=== PATIENT | male | born 1985 | race Caucasian/White ===

== ENCOUNTER 2021-03-06 11:41 | Emergency (ER) | payer OTHER ==
[~2021-03-06] VITALS: Ht 175.3 cm; Wt 100.0 kg
[2021-03-06 12:10] VITALS: BP 162/78
[2021-03-06] MEDS ORDERED: LIDOCAINE HCL 1% 20ML VIAL (Pyxis) INJ INFIL ONE (12:45)
[2021-03-06] MEDS ORDERED: IBUP-2030 MT (13:13)
[2021-03-06] MEDS ORDERED: IBUPROFEN 800MG TABLET PO ONE (13:15)
== END 2021-03-06 14:08 | disposition home or self-care (01) ==
LOC: ER 11:41
DX: S61.211A Laceration without foreign body of left index finger without damage to nail, initial encounter (principal); W26.8XXA Contact with other sharp object(s), not elsewhere classified, initial encounter; Y93.89 Activity, other specified; Y92.89 Other specified places as the place of occurrence of the external cause; Y99.8 Other external cause status
CPT/HCPCS: 12001; 99282